=== PATIENT | male | born 1945 | race Caucasian/White ===

== ENCOUNTER → 2020-06-11 13:50 | Outpatient (CLI) | payer MEDICARE, SELFPAY ==
[2020-04-18 06:39] VITALS: BMI 26.5
--- NOTE | 2020-06-11 13:55 | CT_ITS ---
STUDY: LOW DOSE CT LUNG CANCER SCREENING REASON FOR EXAM: Male, 75 years old. Smoker X 40 YEARS. 1/2X1 PACK A DAY RADIATION DOSAGE (If Supplied By Facility): CTDIvol = ( 2.55 ) mGy, DLP = ( 86.78 ) mGycm TECHNIQUE: No contrast was administered. Low dose technique was utilized (average mAS-38 and kVp 120). 1.25 mm axial source images with a slice interval of 1.25-mm were reconstructed in lung windows. 2.5 mm axial source images with a slice interval of 2.5-mm were reconstructed in lung windows. 5.0 mm axial source images with a slice interval of 5.0-mm were reconstructed in soft tissue windows. Nodule measured using lung windows on PACS and/or independent workstation with automated measurement of minimum and maximum diameter. Nodule measurement reported as average diameter rounded to the nearest whole number. Growth is defined as an increase ins size of greater than 1.5 mm. COMPARISON: Comparison is made with prior examination dated 03/12/2015. Left-sided pacemaker is seen. NODULES: No suspicious nodules are seen. Emphysema: Hyperinflation. Mild degree of emphysematous changes more prominent in the upper lobes. Mild degree of increased linear markings at the right lung base suggestive of a scarring. This is essentially unchanged. Endobronchial lesion: Aorta: Atherosclerotic calcification. Coronary arteries: Coronary artery calcification. Heart: Unremarkable CT/Low Dose CT Lung Screening IMPRESSION: Lung-RADS category 2 - Continue annual screening with LDCT in 12 months. IMPORTANT NOTES FOR USE: ACR Lung-RADS Version 1.0 Assessment Categories Release Date: December 25, 2013 Category: Coded 0-4 bases on nodule(s) with highest degree of suspicion. Negative screen is defined as categories 1 and 2; a positive screen is defined as categories 3 and 4. Category 3 and 4A nodules that are unchanged on interval CT should be coded as category 2, and individuals returned to screening in 12 months. Category 4X: Category 3 or 4 nodules with additional imaging findings that increase the suspicion of lung cancer, such as spiculation, GGN that doubles in size in 1 year, enlarged lymph notes, etc. Category Modifiers: S (significant finding unrelated to lung cancer) and C (prior history of treated lung cancer) may be added to the 0-4 Lung-RADS Electronically Signed: Arias Dumont, at 13:19 EDT , Service support ,
== END ==
PROVIDERS: PCP Family Medicine; Referring Provider Internal Medicine Critical Care Medicine; Visit Provider Internal Medicine Critical Care Medicine
CPT/HCPCS: G0297

== ENCOUNTER → 2020-06-17 09:30 | Outpatient (CLI) | payer MEDICARE, SELFPAY ==
[2020-04-18 06:39] VITALS: BMI 26.5
--- NOTE | 2020-06-18 10:22 | PFT_ITS ---
INTRODUCTION: The patient is a 75-year-old male that presents for pulmonary function studies secondary to a diagnosis of COPD. Respiratory therapy reports good patient effort. Bronchodilators were used during testing. INTERPRETATION: Forced expiration spirometry demonstrates the presence of a moderate large airways obstructive ventilatory defect. There was no significant response to aerosolized bronchodilators. Spirograms are of good quality and do not plateau indicating slow emptying of the lungs. Body plethysmography was performed and reveals lung volumes to be within normal limits. Diffusing capacity by single breath CO is also within normal limits at 91% of predicted. IMPRESSION: Irreversible moderate large airways obstructive ventilatory defect with p reserved lung volumes and diffusing capacity.
== END ==
PROVIDERS: PCP Family Medicine; Referring Provider Internal Medicine Critical Care Medicine; Visit Provider Internal Medicine Critical Care Medicine
DX: J44.9 Chronic obstructive pulmonary disease, unspecified (principal); F17.210 Nicotine dependence, cigarettes, uncomplicated
CPT/HCPCS: 94060; 94726; 94729

== ENCOUNTER → 2020-07-11 12:20 | Outpatient (CLI) | payer MEDICARE, SELFPAY ==
[2020-06-25 08:42] VITALS: BMI 29.0
[2020-07-11 12:44] VITALS: PULSE 59; PULSE 60; PULSE 69; PULSE 73; PULSE 74; PULSE 76; PULSE 77; O2SAT 96; O2SAT 97; O2SAT 98
--- NOTE | 2020-07-11 17:46 | PCM.PSN.6M ---
PSN 6 Minute Walk Test - 6 Minute Walk Test 6 Minute Walk Test: 6 Minute Walk Test PSN:6-Minute Walk Test Start: 07/11/20 12:44 Freq: Status: Active Protocol: [id number] Document 07/11/20 12:44 RUT (Rec: 07/11/20 12:46 RUT [id number]) 6 Minute Walk Test Date Performed 07/11/20 Time Performed 12:30 Height 5 ft 7 in Weight: 81.193 kg Weight in Pounds 179.[address]: Alejandro Singh Assistive device used: None Pre-test Oxygen Delivery Method Room Air Pulse Ox (%) 96 Pulse Rate (60-100 beats/min) 60 Dyspnea Jennifer Scale (0-10) 0 Exertion Jennifer Scale (6-20) 6 1st minute Oxygen Delivery Method Room Air Pulse Ox (%) 98 Pulse Rate (60-100 beats/min) 69 2nd minute Oxygen Delivery Method Room Air Pulse Ox (%) 96 Pulse Rate (60-100 beats/min) 73 3rd minute Oxygen Delivery Method Room Air Pulse Ox (%) 97 Pulse Rate (60-100 beats/min) 73 4th minute Oxygen Delivery Method Room Air Pulse Ox (%) 96 Pulse Rate (60-100 beats/min) 74 5th minute Oxygen Delivery Method Room Air Pulse Ox (%) 96 Pulse Rate (60-100 beats/min) 76 6th minute Oxygen Delivery Method Room Air Pulse Ox (%) 97 Pulse Rate (60-100 beats/min) 77 Dyspnea Jennifer Scale (0-10) 1 Exertion Jennifer Scale (6-20) 13 Post-test Oxygen Delivery Method Room Air Pulse Ox (%) 96 Pulse Rate (60-100 beats/min) 59 L Full Laps Walked 15 Partial Lap, Number of Tiles Walked 42 Total Distance Walked (ft) 927 - Interpretation Interpretation: The patient was able to ambulate 927 feet over the course of 6 minutes on room air with no assistive devices or breaks. There was no significant desaturation or tachycardia noted during testing. These findings are consistent with a musculoskeletal limitation exercise tolerance. - Recommendations Recommendations: No supplemental oxygen is indicated at this time.
== END ==
PROVIDERS: PCP Family Medicine; Referring Provider Internal Medicine Critical Care Medicine; Visit Provider Internal Medicine Critical Care Medicine
DX: J44.9 Chronic obstructive pulmonary disease, unspecified (principal); F17.210 Nicotine dependence, cigarettes, uncomplicated
CPT/HCPCS: 94618

== ENCOUNTER → 2021-05-23 11:08 | Outpatient (CLI) | payer MEDICARE, SELFPAY ==
[2021-05-23 15:50] LABS: Creatinine, Serum 1.09 mg/dL (0.70-1.30); EST Glomerular Filtration Rate 70 mL/min (>60); Est Glom Filt Rate - Afr Amer 85 mL/min (>60)
== END ==
PROVIDERS: PCP Family Medicine; Referring Provider Otolaryngology; Visit Provider Otolaryngology
DX: H90.A21 Sensorineural hearing loss, unilateral, right ear, with restricted hearing on the contralateral side (principal)
CPT/HCPCS: 36415; 82565

== ENCOUNTER → 2021-05-27 15:48 | Outpatient (CLI) | payer MEDICARE, SELFPAY ==
--- NOTE | 2021-05-27 15:50 | CT_ITS ---
STUDY: CT BRAIN WITH AND WITHOUT CONTRAST REASON FOR EXAM: Male, 76 years old. ASYMMETRICAL SENSORINEURAL HEARING LOSS RADIATION DOSAGE (If Supplied By Facility): CTDIvol = ( 44.99 ) mGy, DLP = ( 1479.73 ) mGycm TECHNIQUE: Transaxial CT imaging of the brain was performed pre and post contrast administration. The examination was performed with intravenous administration of IV 50mL Isovue-370. Individualized dose optimization techniques were used for this CT. COMPARISON: None. FINDINGS: Normal soft tissue structures. Normal calvarium. Normal size ventricles and extra-axial spaces for the patient''s age. Normal white matter tracts of the cerebral hemispheres. Normal basal ganglia and thalami. Normal brainstem. Normal cerebellum. Demetrius cisterna magna. Crowded foramen magnum. There is no intracranial hemorrhage. There are no findings of an acute ischemic infarction. Near complete opacification of the right maxillary sinus. CT/Brain/Head W/WO Contrast IMPRESSION: Crowded foramen magnum. No acute abnormal finding. Consider CT of the temporal bones/IACs to further investigate hearing loss. Electronically Signed: Baldemar Taveras MD at 8:05 EDT Tel , Service support ,
== END ==
PROVIDERS: PCP Family Medicine; Referring Provider Otolaryngology; Visit Provider Otolaryngology
DX: H90.A21 Sensorineural hearing loss, unilateral, right ear, with restricted hearing on the contralateral side (principal)
CPT/HCPCS: 70470; Q9967

== ENCOUNTER → 2021-06-18 15:48 | Outpatient (CLI) | payer MEDICARE, SELFPAY ==
--- NOTE | 2021-06-18 15:51 | CT_ITS ---
STUDY: LOW DOSE CT LUNG CANCER SCREENING REASON FOR EXAM: Male, 76 years old. Smoker and gt; 40 pack years RADIATION DOSAGE (If Supplied By Facility): CTDIvol = ( 3.02 ) mGy, DLP = ( 106.08 ) mGycm TECHNIQUE: No contrast was administered. Low dose technique was utilized (average mAS-38 and kVp 120). 1.25 mm axial source images with a slice interval of 1.25-mm were reconstructed in lung windows. 2.5 mm axial source images with a slice interval of 2.5-mm were reconstructed in lung windows. 5.0 mm axial source images with a slice interval of 5.0-mm were reconstructed in soft tissue windows. Nodule measured using lung windows on PACS and/or independent workstation with automated measurement of minimum and maximum diameter. Nodule measurement reported as average diameter rounded to the nearest whole number. Growth is defined as an increase ins size of greater than 1.5 mm. COMPARISON: Comparison is made with prior study dated 06/11/2020. NODULES: No suspicious nodules are seen. Emphysema: Mild degree of emphysematous changes more prominent in the upper lobes. Minimal scarring at the right lung base. Endobronchial lesion: Unremarkable Aorta: Atherosclerotic calcification of the aortic arch. Coronary arteries: Coronary artery calcification. Heart: A left-sided dual-chamber pacemaker is seen. Pulmonary artery: Unremarkable Mediastinal nodes: Unremarkable Other chest and abdominal findings: CT/Low Dose CT Lung Screening IMPRESSION: Lung-RADS category 2 - Continue annual screening with LDCT in 12 months. IMPORTANT NOTES FOR USE: ACR Lung-RADS Version 1.1 Assessment Categories Release Date: 2018 Category: Coded 0-4 bases on nodule(s) with highest degree of suspicion. Negative screen is defined as categories 1 and 2; a positive screen is defined as categories 3 and 4. Category 3 and 4A nodules that are unchanged on interval CT should be coded as category 2, and individuals returned to screening in 12 months. Category 4X: Category 3 or 4 nodules with additional imaging findings that increase the suspicion of lung cancer, such as spiculation, GGN that doubles in size in 1 year, enlarged lymph notes, etc. Category Modifiers: S (significant finding unrelated to lung cancer) Electronically Signed: Arias Dumont MD at 12:07 EDT , Service support ,
== END ==
PROVIDERS: PCP Family Medicine; Referring Provider Nurse Practitioner Acute Care; Visit Provider Nurse Practitioner Acute Care
DX: F17.210 Nicotine dependence, cigarettes, uncomplicated (principal)
CPT/HCPCS: 71271

== ENCOUNTER 2021-07-04 07:55 | Day surgery (SDC) | payer MEDICARE, SELFPAY ==
--- NOTE | 2021-07-03 13:04 | EKG12_ITS ---
Test Reason : PREOP Blood Pressure : / mmHG Vent. Rate : 060 BPM Atrial Rate : 060 BPM P-R Int : 222 ms QRS Dur : 140 ms QT Int : 454 ms P-R-T Axes : 071 -89 009 degrees QTc Int : 454 ms AV dual-paced rhythm with prolonged AV conduction Biventricular pacemaker detected Abnormal ECG Confirmed by MIAN TOLBERT, IVAN ([id number]), editor school photograph MEREDITH QUINTERO ([id number]) on 07/07/2021 10:11:21 A M Referred By: Leo Arzate Confirmed By:JODY PAPPAS MD
[2021-07-03 14:44] LABS: Hematocrit 43.2 % (40-54); Hemoglobin 14.3 g/dL (13.0-16.5); Mean Corp Hgb Conc 33.1 g/dL (32-36); Mean Corpuscular Hgb 31.2 pg (27.0-32.0); Mean Corpuscular Volume 94.1 fL (80-94); Mean Platelet Vol. 10.2 fl (6.2-12.0); Platelet Count 167 K/mm3 (150-450); RBC Distribution Width CV 14.1 % (11.6-14.6); RBC Distribution Width SD 49.1 fl (35.1-43.9); Red Blood Count 4.59 M/mm3 (4.6-6.2); White Blood Count 8.8 K/mm3 (4.4-11.0)
[2021-07-03 14:49] LABS: International Normalized Ratio 3.3; Prothrombin Time (Protime)PT. 32.6 SECONDS (11.7-14.9)
[2021-07-03 15:04] LABS: Anion Gap 3 (5-15); BUN 19 mg/dL (7-18); BUN/Creat Ratio 16.2 RATIO (10-20); Calcium,Total 8.5 mg/dL (8.5-10.1); Chloride 108 mmol/L (98-107); Creatinine, Serum 1.17 mg/dL (0.70-1.30); EST Glomerular Filtration Rate 65 mL/min (>60); Est Glom Filt Rate - Afr Amer 78 mL/min (>60); Glucose 90 mg/dL (74-106); Potassium 4.5 mmol/L (3.5-5.1); Sodium Level 140 mmol/L (136-145)
[2021-07-04] VITALS (7 sets, daily range): BP systolic 109–134; BP diastolic 48–69; PULSE 60–74; RESP 16; TEMP 36.2–36.7; O2SAT 95–98; BMI 30.4
--- NOTE | 2021-07-04 | ETH_PTH ---
PATIENT: REDD TIDWELL [place] [facility] [place][id number] AGE/SX: 76/M ROOM: RE07/04/[address]: Dr. Leo Arzate MD : 1945 BED: DIS: 07/04/2021 SPEC #: [id number] RECD: 07/04/21 13:32 STATUS: CHARLEE REShruthi #: [id number] DELONTE: 07/04/21 00:[address]: Leo Arzate DEPT: SURGICAL PATHOLOGY RECD BY: Mir Salinas ENTERED: 07/04/21 13:33 SP TYPE: ETH TISS OTHR DR: Dr. Dylan Bishop MD Tissues: Ethmoid sinus, NOS Procedures: Decalcification bone/plaque Surgery Specimen Level IV HEADER OPERATION: Endoscopic sinus maxillary antrostomy PRE-OP DIAGNOSIS: Chronic maxillary ethmoid sinusitis TISSUE SUBMITTED: Right maxillary sinus contents MICROSCOPIC DIAGNOSIS Right maxillary sinus contents: Fragments of respiratory mucosa with moderate acute and chronic inflammation and bone. BRITTANY:glenn 07/08/2021 MICROSCOPIC DESCRIPTION Slides are reviewed. GROSS DESCRIPTION Received in fixative is one container labeled with the patient's name and designated right maxillary sinus contents. The specimen consists of multiple irregular fragments of de la rosa-pink soft tissue mixed with fragments of bone that in aggregate measure 5 x 3 x 0.2 cm. The specimen is totally submitted in two cassettes after decalcification. / BRITTANY:glenn 07/04/21 TC:2 CPT: 55568, 08957
[2021-07-04] MEDS: Lactated Ringers 1,000 ML 15 ML IV (08:25)
[2021-07-04] MEDS: Oxymetazoline 0.05% 1 SPRAY SPRAY.BTL 15 SPRAY (09:37)
[2021-07-04] MEDS: Lidocaine 1% /Epi 1:100 (50ml) 50 ML VIAL (09:37)
[2021-07-04] MEDS: Lidocaine 4% 50 ML Bottle (09:37)
--- NOTE | 2021-07-04 10:03 | PCM.OPRPT ---
Problems Associated Problem List Diagnoses (1) Chronic right maxillary sinusitis: (2) Chronic ethmoidal sinusitis: Report of Operation Date of Procedure: 07/04/21 Pre-Operative Diagnosis: Chronic right maxillary and ethmoid sinusitis Post-Operative Diagnosis: Same Surgery/Procedure Performed:: Right endoscopic maxillary antrostomy with tissue removal, right partial ethmoidectomy Description of Surgical Findings:: Gen is a 76-year-old male who is noted to have incidental findings on CT scan of the brain a complete opacification of the right maxillary sinus. He had noted right-sided facial discomfort and pressure and this was felt to be attributable to this finding surgical treatment offered for the chronic appearing disease and evaluation for possible neoplasia or other cause. The risks, alternatives, potential complications, and benefits were discussed at length and any questions answered to the patient and/or caregiver's satisfaction. Witnessed informed consent was obtained in the office, and the patient and/or caregiver was agreeable to proceed. Procedure went as follows: The patient was identified in the preoperative holding and brought to the operating room, was placed under general anesthesia and intubated. When appropriate anesthesia was obtained, the navigational head gear was placed and confirmed to be operational in accordance with the mender knit goods's directions. Pledgets soaked in a 50-50 mixture of oxymetazoline and 4% topical lidocaine were placed to decongest the nasal mucosa. These were then removed and beginning on the right side using a 0? endoscope the nasal cavity examined. The insertion of the middle turbinate and uncinate process was then injected with 1% lidocaine with 100,000 epinephrine for a total of 2 mL. On the right side, the maxillary sinus ostia which was then probed with a double ball seeker. The uncinate process was then outfractured with a J curette and transected with a backbiting forceps. This was then removed with the microdebrider creating a wide maxillary antrostomy. The maxillary sinus noted to be filled with friable bullous polypoid material which was then removed with serial grasping forceps and curved suctions. The ethmoid bulla was noted to be low lying and obstructing the maxillary sinus ostia and this was then entered and a partial ethmoidectomy was then carried out working posteriorly and superiorly to the maxillary antrostomy. This alleviated the area obstruction and widen the ostiomeatal complex to allow for ongoing patency. Pledgets soaked in oxymetazoline were then placed for hemostasis and Floseal hemostatic agent was then applied. An NG tube was then placed to decompress the stomach and the patient returned to anesthesia, revived and extubated having tolerated the procedure well. Surgeon: seven Type of Anesthesia: General Anesthesiologist: Curtis Mcrae Specimen's removed: right maxillary sinus contents Drains: none Estimated Blood Loss (mL): 50 mL Fluids Replaced: 800 mL Grafts/Implants Used: none Complications none Admit VTE Documentation VTE Present on Admission: No VTE Mechan Device Prophylaxis: SCD's VTE Pharm Prophylaxis ordered?: No Reason prophylaxis not ordered:: Treatment Not Indicated
--- NOTE | 2021-07-04 10:22 | PCM.DC ---
Discharge Instructions Diet Discharge Diet: No restrictions Activity Discharge Activity: Return to Normal Activity Weight Bearing Status: Weight bearing as tolerated Dressing / Incision Call your doctor if your incision/area has: Sudden Increased Bleeding Call your doctor if you observe: Fever of 101 or Higher and Uncontrolled pain Follow Up Care Please Follow Up With: Leo Arzate MD When: 2 weeks Test Results: Test results from this visit will be discussed in further detail at your follow-up appointment, if applicable. Discharge Plan Admission Primary Reason for Your Visit: Chronic maxillary sinusitits, ehtmoid sinusitis Attending Provider: Leo Arzate Primary Care Provider: Dylan Bishop Discharge Orders/Prescriptions Prescriptions: New acetaminophen 500 mg Tablet 500 mg PO Q4H PRN PRN (Reason: Pain Score 1-5/10) Qty: 0 RF: 0 Continued Anoro Ellipta 62.5-25 mcg/actuation blister with device 1 inh inhalation Q24H Qty: 1 RF: 3 lisinopril 5 MG tablet 5 mg PO DAILY Qty: 30 RF: 0 albuterol sulfate 1 INHALER inhaler 1 - 2 puff INHALATION Q4H PRN PRN (Reason: SOB &/OR WHEEZING) Qty: 1 RF: 0 escitalopram oxalate 10 MG tablet 10 mg PO DAILY Qty: 30 RF: 0 carvedilol 12.5 MG tablet 12.5 mg PO BID Qty: 60 RF: 0 warfarin 5 mg Tablet 5 mg PO SUMOWETHFRSA RF: 0 warfarin 5 mg Tablet 2.5 mg PO TU RF: 0 Referrals / Follow Up: Dylan Bishop MD [Primary Care Provider] - Disposition Disposition (needs filled in before D/C Order can be placed): Home, Self Care
--- NOTE | 2021-07-04 12:15 | SUR.PHASEII ---
PT'S AT BEDSIDE. SHE HAS ASSISTED PT. WITH SNACK. SHE WILL CALL TRANSPORT TO TAKE PT. BACK TO [facility].
[2021-07-04 13:21] LABS: INR Fingerstick 2.8; Prothrombin Time Fingerstick 31.5 SEC (11.9-14.4)
== END 2021-07-04 12:05 | disposition home or self-care (01) ==
LOC: SDC 07:58 → AC 07:59
PROVIDERS: Anesthesiology; PCP Family Medicine; Referring Provider Otolaryngology; Visit Provider Otolaryngology
PROC: (CPT 31254; principal; 2021-07-04 08:45)
DX: J32.0 Chronic maxillary sinusitis (principal); J32.2 Chronic ethmoidal sinusitis; I10 Essential (primary) hypertension; M19.90 Unspecified osteoarthritis, unspecified site; I25.10 Atherosclerotic heart disease of native coronary artery without angina pectoris; J44.9 Chronic obstructive pulmonary disease, unspecified; F32.A Depression, unspecified; Z95.810 Presence of automatic (implantable) cardiac defibrillator; Z79.899 Other long term (current) drug therapy; F17.210 Nicotine dependence, cigarettes, uncomplicated
CPT/HCPCS: 00160; 31254; 31267; 36415; 36416; 80048; 85027; 85610; 87426; 88305; 88311; 93005; C9803; J7120; J2405

== ENCOUNTER 2022-07-24 14:54 | Outpatient (CLI) | payer BC, SELFPAY ==
--- NOTE | 2022-07-24 14:55 | CT_ITS ---
EXAM: CT CHEST, LUNG CANCER SCREENING WITHOUT INTRAVENOUS CONTRAST CLINICAL INDICATION: Tobacco Dependency TECHNIQUE: Helically acquired images were obtained of the chest without intravenous contrast using low dose (LDCT) lung cancer screening protocol. This CT exam was performed using one or more of the following dose reduction techniques: automated exposure control, adjustment of the mA and/or kV according to patient size, and/or use of iterative reconstruction technique. This report was created using [employer] report generation technology. COMPARISON: CT Lung Cancer Screening dated 06/18/2021 FINDINGS: LUNGS AND PLEURAL SPACES: No evidence of a lung mass or pulmonary nodule. No pleural effusion or thickening. No pneumothorax. HEART: Heart is normal size. Dense coronary artery calcification is noted. No pericardial effusion. MEDIASTINUM: Normal. No mediastinal or hilar adenopathy. Esophagus is unremarkable. No hiatal hernia. THYROID: Normal. No thyroid lesions. BONES/JOINTS: Normal. No suspicious lytic or blastic abnormality. VASCULATURE: Normal. Thoracic aorta is non-dilated. LYMPH NODES: Normal. No enlarged lymph nodes. TUBES, LINES AND DEVICES: Automatic implantable cardioverter defibrillator (AICD) in place. CT/Low Dose CT Lung Screening IMPRESSION: 1. No evidence of lung mass or pulmonary nodule. 2. ACR Lung CT Screening Reporting T Data System (Lung-RADS) score: 1 - Recommend continued annual screening with low-dose CT (LDCT) in 12 months. Electronically Signed: Jake Pearce MD at 15:48 EST ,
== END 2022-07-24 23:59 | disposition home or self-care (01) ==
LOC: CT 14:54
PROVIDERS: PCP Family Medicine; Visit Provider Internal Medicine Critical Care Medicine
DX: F17.210 Nicotine dependence, cigarettes, uncomplicated (principal); Z12.2 Encounter for screening for malignant neoplasm of respiratory organs; I25.10 Atherosclerotic heart disease of native coronary artery without angina pectoris
CPT/HCPCS: 71271

== ENCOUNTER → 2024-11-30 | Outpatient (CLI) | payer MEDICARE, SELFPAY ==
--- NOTE | 2024-11-30 13:07 | CR.HP_ITS ---
CR - History & Physical General Arrival date:: 11/30/24 Arrival time:: 13:08 Date of Referral:: 11/08/24 Date of CR Evaluation:: 11/30/24 Referring Physician: Dr. Cherelle Christian Primary Diagnosis: S/P CABG History of Present Cardiac Event Onset Date Coronary Artery Bypass Graft:: Yes Vessel: CABALLERO to LAD. PERLA to SVG to OM onset 09/29/2024 Medications Ambulatory Orders ?Medication ?Instructions ?Recorded albuterol sulfate 90 mcg/actuation 1 - 2 puff inhalati on Q4H PRN PRN 03/13/15 aerosol inhaler SOB &/OR WHEEZING ##1 carvedilol 12.5 mg tablet 12.5 mg PO BID #60 tabs 02/27 01/11 escitalopram oxalate 10 mg tablet 10 mg PO DAILY #30 t abs 03/13/15 lisinopril 5 mg tablet 5 mg PO DAILY #30 tabs 03/13 umeclidinium 62.5 mcg-vilanterol 1 inh inhalation Q24H #1 device 04/18/20 25 mcg/actuation powdr for inhalation (Anoro Ellipta) warfarin 5 mg tablet 2.5 mg PO TU 07/03/21 warfarin 5 mg tablet 5 mg PO SUMOWETHFRSA 1 acetaminophen 500 mg tablet 500 mg PO Q4H PRN PRN Pain Score 07/04/21 1-5/ #0 tabs aspirin 81 mg capsule 81 mg PO DAILY 04/28/22 Allergies Allergies Penicillins (PCN) Allergy (Verified 04/28/22 07:54) Hives Sleep Disorder Evaluation Hx of Sleep Apnea: No Do you snore loudly (louder than talking or can be heard through closed doors)?: No Do you often feel tired/ fatigued/ sleepy during daytime?: No Has anyone observed you stop breathing during sleep?: No History of Hypertension (for STOP score): Yes STOP Results: Negative Advanced Directives Advanced Directives Do you have a Healthcare Power of Auto [employer]?: No Living Will: No Advance Directives Information Provided: No Advance Directives on File: No DNR Order?:: No Past Medical History Covid-19 Screening Physicial Symptoms Other Clinical Concerns Exposure Risk Pertinent Comorbidities 65 years or older:: Yes Has a chronic lung disease or moderate to severe asthma:: Yes Has a serious heart condition:: Yes Past Medical Illness Past Medical History (Updated 08/20/21 @ 10:[address] Alejandro Singh, DO) Wears hearing aid Z97.4 RIGHT Wears glasses Z97.3 Wears dentures Z97.2 DOESNT WEAR Depression F32.A ON MED Anxiety F41.9 ON MED Arthritis M19.90 Back pain M54.9 OCC Injury of head and neck S09.90XA, S19.9XXA FALL AT WORK AND HIT HEAD YRS AGO History of Meniere's disease Z86.69 Former smoker Z87.891 Asthma J45.909 MILD History of pain when walking Z87.898 OCC History of edema Z87.898 LOWER LEGS PRN History of echocardiogram Z92.89 UNSURE History of stress test Z92.89 1-2 YRS AGO Cardiology follow-up encounter Z09 DR FABIAN AT [facility]/LAST VISIT 08/2020 Hypertension I10 CONTROLLED WITH MEDS History of heart attack I25.2 25-30 YRS AGO History of pacemaker Z95.0 COPD (chronic obstructive pulmonary disease) J44.9 INHALERS Chest pain R07.9 CAD (coronary artery disease) I25.10 SOB (shortness of breath) R06.02 Past Surgical History Past Surgical History (Updated 07/03/21 @ 08:29 by Antonella Villa) Hx of varicose vein ligation and stripping Z98.890 BILAT History of cardiac catheterization Z98.890 OVER 5 YRS AGO Hx of colonoscopy Z98.890 History of carpal tunnel surgery of right wrist Z98.890 History of carpal tunnel surgery of left wrist Z98.890 History of implantable cardiac defibrillator (ICD) Z95.810 Hx of shoulder surgery Z98.890 RIGHT SHOULDER RECONSTRUCTION FROM INJURY Family History Summary Family History Other No pertinent family history Social History Smoking History Smoking Status: Former smoker Years Smokin Packs Smoked per Day: 3 (Pt stopped smoking this August) Alcohol Use Alcohol Usage: No Substance Abuse Hx Substance Use: No Occupation Occupation (List type of work in comments):: Retired Social Environment Status Marital Status: Current Living Arrangements Living Environment:: Spouse Children How many children do you have?: 3 Do any of your children live nearby?: Yes Safety Do you feel safe in your surroundings?: Yes Assistance Do you need any assistance at home?: no Review of Systems Review of Systems Hints Review of Present Symptoms: Reports Shortness of Breath with Exertion, PVD, Dizziness/Lightheadedness, Fatigue and Appetite - Special Diet; Denies Shortness of Breath at Rest, Operative Discomfort, Angina, Wound Healing, Heart Arrhythmia/Irregularities, Appetite - Normal, Sleep - Normal or Sexual Changes Pain Is Patient Pain Free?: Yes Risk Factor Assessment Chief Complaint Chief Complaint: S/P CABG Vital Signs Pulse Ox: 100 Blood Pressure: 90/40 Pulse Pulse Rate: 76 Pulse Rhythm: Regular Obesity Height: 5 ft 7 in Weight:: 154 lb Weight in Pounds: 154.0 lbs Body Mass Index (BMI): 24.1 Nutritional Referral for Obesity: No Risk Stratification Risk Guidelines: Moderate Risk: Risk Factor for Diabetes, Risk Factor for Obesity and Risk Factor for Sedentary Lifestyle and Highest Risk: Risk Factor for Smoking, Risk Factor for Dyslipidemia, Risk Factor for Hypertension and Risk Factor for Depression For Smoking Smoking Risk Guidelines For Dyslipidemia Dyslipidemia Risk Guidelines For Diabetes Mellitus Diabetes Risk Guidelines For Obesity/Overweight Obesity/Overweight Risk Guidelines For Hypertension Hypertension Risk Guidelines For Sedentary Lifestyle Sedentary Lifestyle Risk Guidelines For Depression Depression Risk Guidelines Family History Family History Other No pertinent family history Motivation Motivation to Participate On a scale of 1 to 10, how prepared are you to commit to attending program?: 10 What do you see as barriers to successfully being able to complete the program?: nothing What do you see as the benefits of succesfully completing the program? In other words, what do you hope to get out of participating in the program?: stronger, better attitude Are there issues you are dealing with that will interfere with completing the program?: no Do you have a spouse or signficant other, family or friends who will help support you to complete the program?: yes
--- NOTE | 2024-11-30 13:15 | PCM.CR.ITP ---
Diagnosis General Information Admitting Diagnosis: S/P CABG Personal Learning Style:: Audio/Visual Barriers to Learning: No Barriers Stage of change r/t lifestyle modifications:: Contemplation Gave educational material for:: Treating Heart Disease, How The Heart Works, What it means to have Heart Disease, How Coronary Artery Disease is Diagnosed, Heart Procedures, What Heart Medications Do, Risk Factors & Modifications, Living an Active Life, Nutrition, Emotions & Heart Disease, Stress Management & Relaxation and Sleep Disorders & Heart Disease Education/Goals Cardiac Rehabilitation Goals Personal Goals: Initial Assessment: Quit smoking (participate in smoking cessation, Improve management of stress and emotions, Improve energy level, Get back to work, or to resume activities faster, Improve knowledge of cardiac disease, Improve muscle strength and endurance, Control risk factors (learn risk factor modification) and Other goal: Scale for measuring improvement of personal goals Diagnosis & Disease Process Outcomes/Goals: Pt IDs own risk factors & lifestyle modifications by Session 10, Verbalizes symptoms of angina & response by session 3., Pt independently manages and Other Additional Outcomes/Goals: Plan/Interventions: Assist Pt to ID & engage in lifestyle modification to reduce CVD risk, Instruct on individual risk factors, Review symptoms of angina & emergency actions, Review secondary diagnosis & identify educational needs. and Other see comment 30 day Reassessments:: Not Met 30 day Reassessments:: Not Met 30 day Reassessments:: Not Met 30 day Reassessments:: Not Met Final Reassessments:: Not Met Safety Referral to Physical Therapy: No Referral to [facility] Case Management: No Fall Risk Assessed:: Yes Assistive Devices:: None Exercise - Initial Assessment Visit Date of Eval: 11/30/24 (initial eval ) Mets: Pre-: >3 METS for 30 minutes by discharge, >5 METS for 30 minutes by discharge, >7 METS for 30 minutes by discharge and Unable to meet goal due to: (see comment below) Physician Prescribed Exercise Modalities: David MATHIAS-[id number], SciFit Stepper, SciFit Pro-II Ergometer and NextPrinciplesFit Lateral Fruit Express Agent Frequency: 3x/week for 12 weeks [36 sessions] Intensity: 60-80% of age predicted maximum heart rate reserve Duration: 30 - 45 minutes Current METSs:: 3 Target Heart Rate:: 86-107 Resting Blood Pressure: 90/40 EKG Type: AV dual paced w/ prolonged AV conduction Outcomes & Goals Goals:: Verbalizes understanding of THR, RPE & goal METS by session 6, Documents in home exercise log/reports 30 min aerobic 5 day/wk by DC, Demonstrates accurate pulse taking by DC and Other additional outcome/goals: see below Intervention & Plan Exercise Program Goals: Instruct on personal THR & RPE, Instruct on MET level & personal MET goal, Show patient to take own pulse /validate performance until accurate, Instruct on home exercise and Other additional plan/int Physical Activity Home Exercise Physical Activity - Home Exercise: Safe Exercise, Warm-up, Self-monitoring, Cool-Down, Home Exercise > 30 min Daily and Sitting Time <3 hours/daily Outcomes & Goals Outcomes/Goals: Demonstrates correct Warm-up/exercise Cool-Down (S3) if = 2.5 METs, Verbalizes symptoms of exercise intolerance by Session 3 (S3), Demonstrate safe equipment use (S3) & follows exercise prescrition (6) and Other: See below Intervention & Plan Plan/Intervention: Instruct warm-up & cool-down if exercising at > 2 METs, Instruct on symptoms of exercise intolerance & actions to take, Instruct & monitor on saf, Assess intial functional capacity & safety risk and Other See below Nutrition - Initial Assessment Program Goals Nutrition Program Goals Patient has diagnosis of Hyperlipidemia (ICD E78)?: Yes Visit Date of Eval: 11/30/24 (initial eval ) Cholesterol/Lipids (Other Core Measures) Determine presence & major risk factors that modify LDL goal: Cigarette smoking, Hypertension or hypertensive medication, Low HDL cholesterol <40 mg/dL*, Family history of premature CHD in Male < 55 years: female <65 yearsFa and Age men > 45 years; women >/= 55 years Outcomes/Goals: Pt IDs own risk factors & lifestyle modifications by Session 10, Verbalizes symptoms of angina & response by session 3., Pt independently manages and Other Additional Outcomes/Goals: Intervention/Plan: Advocate for lipid panel cholesterol medication if applicable, Instruct on personal lipid levels & lipid goals/NCEP guidelines, Instruct on cholesterol and Other additional plan/int Diabetes (Other Core Measures) Diabetes Type: Not Applicable Weight Mgt (Other Care) Height: 5 ft 7 in Weight:: 154 lb BMI: 24.1 Diagnosis Overweight/Obesity BMI> 30% ICD-10 E66: No Diagnosis High BMI/Morbid Obesity BMI> 35% ICD-10 Z68: No Outcomes/Goals: Pt sets, maintains & shows weight loss goal & trend during rehab and Other additional outcomes/goals Intervention/Plan: Instruct on ideal BMI & set weight loss goal w/patient, Assist pt to ID & incorporate diet changes for weight loss by S9, Refer to Structured Weight Loss program as appropriate, Encourage goal of using 250-300dcal per session for weight loss and Other additional plan/interventions Healthy Eating Habits Will attend diet classes:: Yes Outcomes/Goals:: Consume diet rich in vegs,fruits,whole grain/high fiber,fish,lean meat, Limit sat/trans fats,cholesterol & added salts & sugars and Other additional outcome/goals: Intervention/Plan:: Assess current eating habits and Other Additional plan/interventions Education Gave educational materials for:: Signs & symptoms of hypoglycemia, Signs & symptoms of hyperglycemia, Relate diabetes to coronary artery disease and Healthy eating Core - Initial Assessment Visit Date of Eval: 11/30/24 (initial eval ) Medication Compliance Preventative Medication(s):: Statin/lipid and Eliquis Doesn?t believe in the benefits of treatment?: No Believes medications are unnecessary or harmful?: No Has a concern about medication side effects?: No Expresses concern over the cost of medications?: No Outcomes/Goals: Verbalizes medications,desired effect & common side effects @ DC, Pt self-reports following medication regimen, Keeps card in wallet w/medications listed by DC and Other additional outcome/goals: Interventions/plans: Instruct on medication effects & side effects, Review medication list w/patient every two weeks, Instruct importance of taking meds as ordered & assist problem solving and Other additional Tobacco Use Tobacco Use: Non-smoker How long ago did you quit using tobacco products?: Less than 6 months ago (Pt stopped smoking in August) Years Smokin Do you use smokeless tobacco?: No Outcomes/Goals: Smoking cessation achieved or maintained by discharge, Identify aids/strategies for achieving smoking cessation by session 6 and Other additional outcome/goals Interventions/plan: Instruct on effects of smoking & provide smoking cessation resource, Assist pt to set quit date & provide encouragement, Assist pt to develop strategies to achieve/maintain quit date, Assist pt w/nicotine replacement & medication for cessation success and Other additional plan/interventions Hypertension Hypertension Diagnosis:: Hypertension ICD-10 I10 Resting Blood Pressure:: 90/40 [place] [employer] Hypertension Guidelines Outcomes/Goals: Able to verbalize/achieve optimal blood pressure <130/80, Incorporates diet changes & exercise for blood pressure control by DC and Other additional outcomes/goals Interventions/plan: Instruct on optimal blood pressure, hypertension & medications, Instruct on effects of sodium, alcohol, stress, exercise &hypertension and Other additional plan/interventions Tobacco Cessation Referral Smoking Cessation Referral:: No Individual Education/Counseling:: No Education Schedule Given:: Yes Psychosocial - Initial Assess VIsit Date of Eval: 11/30/24 (initial eval ) History of previous Mental disease:: Yes History of Emotional Disorders: Depression (Pt states he has suffered from some mild depression/anger since his surgery.) Self-reported stressors: Recent Illness Target Goals Target Goals Psychosocial Test Tool Used:: Visual [employer] QOL Cardiac and PHQ-9 Questionnaire phq-9 Severity See PHQ-9 Score: 16 Referral to Behavioral Health PS - Interventions: Yes: Attend Stress Management Classes Outcomes/Goals: See list Psychosocial Outcomes/Goals:: ID's personal stressors & 2 strategies to manage stress by discharge and Other Additional outcome/goals: Intervention/Plan: See List Interventions/Plan:: Assess stressors,coping strategies & signs of derpression on admission, Instruct/assist pt to develop coping & personal stress Mgt strategies, Refer to Behavioral Health if appropriate, Refer to Physician if appropriate, Instruct patient to recognize signs & symptoms of depression, Instruct patient to recog and Other additional plan/intervention Patient Health Questionnaire PHQ-9 Screening Initial Assessment: 1. Little interest or pleasure in doing things: Nearly every day 2. Feeling down, depressed, or hopeless: Nearly every day 3. Trouble falling or staying asleep, or sleeping too much: Nearly every day 4. Feeling tired or having little energy: Nearly every day 5. Poor appetite or overeating: Not at all 6. Feeling bad about yourself -- or that you are a failure or have let yourself or your family down: More than half the days 7. Trouble concentrating on things, such as reading the newspaper or watching television: More than half the days 8. Moving or speaking so slowly that other people could have noticed. Or the opposite - being so fidgety or restless that you have been moving around a lot more than usual: Not at all 9. Thoughts that you would be better off , or of hurting yourself in some way: Not at all How difficult have these problems made it for you to do your work, take care of things at home, or get along with other people?: Somewhat difficult Total Score: 16 CH[place]STIANA-Q SV Test Statements CAD is a disease of the arteries in the heart: False Examples of risk factors for heart disease: True Angina is chest pain or discomfort: True The benefits of resistance training include: True Eating more meat and dairy products: I Don't Know Anti-platelet medications such as aspirin are important: True The only effective way to manage stress: False An exercise warm-up slowly increases heart rate: True Prepared, processed foods usually have high sodium: True Depression is common after a heart attack: True The statin medications lower cholesterol: I Don't Know To control blood pressure, lower the amount of sodium: True If someone gets chest discomfort during walking: False Transfats are partially hydrogenated vegetable oils: I Don't Know Sleep apnea that is not treated increases the risk: False To control cholesterol, one should become a vegetarian: False Someone knows if he/she is exercising at the right level: True Diabetes cannot be prevented with exercise & health eating: True Stress is a large risk for heart attack: True A diet that can help lower blood pressure is rich in: True Total Score Total Correct Responses: 16 Self-Efficacy 6-Item Scale Initial Assessment: We would like to know how confident you are in doing certain activities. Please select your confidence level for: Fatigue Select Number: 8 Physical Discomfort or Pain Select Number: 9 Emotional Distress Select Number: 9 Other Symptoms or Health Problems Select Number: 7 Different Tasks and Activities Select Number: 8 Medication Select Number: 9 Total Score:: 8 Nutrition Survey Nutrition Survey Instructions Scoring Instructions Nutrition Survey Initial: Have you lost >10 lbs over the past 2 months without trying?: No Are you following a special diet at home for diabetes, low fat, or low salt?: No Are you interested in meeting with a dietitian for help understanding your diet?: No Do you eat less than 3 meals a day?: Yes Do you eat fatty meats (rush, sausage, ribs, etc), fried foods, desserts, large amounts of salad dressings, margarine, butter, or cheese most days?: No Do you have food allergies? [Enter types in comment field]: No Do you eat in restaurants more than 3 times a week?: No Do you season food with salt, seasoning salt, or garlic salt?: No Do you used canned, boxed, frozen meals, or soups, seasoning packets?: Yes Total Score:: 2 Exercise - 30-day Assessment Physician Prescribed Exercise Modalities: Schwinn Airdyne AD-7, SciFit Stepper, SciFit Pro-II Ergometer and SciFit Lateral Fruit Express Agent Exercise - 60-day Assessment Physician Prescribed Exercise Modalities: Schwinn Airdyne AD-7, SciFit Stepper, SciFit Pro-II Ergometer and SciFit Lateral [place] Exercise - 90-day Assessment Physician Prescribed Exercise Modalities: Schwinn Airdyne AD-7, SciFit Stepper, SciFit Pro-II Ergometer and SciFit Lateral Fruit Express Agent Exercise - Final/Discharge Physician Prescribed Exercise Modalities: Schwinn Airdyne AD-7, SciFit Stepper, SciFit Pro-II Ergometer and SciFit Lateral [place] Frequency: 3x/week for 12 weeks [36 sessions] Intensity: 60-80% of age predicted maximum heart rate reserve Current METSs:: 3 Target Heart Rate:: 86-107 Nutrition - 30-Day Assessment Weight Mgt (Other Care) Height: 5 ft 7 in Weight:: 154 lb BMI: 24.1 Nutrition - 60-Day Assessment Weight Mgt (Other Care) Height: 5 ft 7 in Weight:: 154 lb BMI: 24.1 Core - 30-Day Assessment Tobacco Use Years Sm[place] Core - Final Assessment Hypertension Resting Blood Pressure:: 90/40 [place] [employer] Hypertension Guidelines Core - 60-Day Assessment Hypertension Resting Blood Pressure:: 90/40 [place] [employer] Hypertension Guidelines Psychosocial - 30-Day Assess Target Goals Target Goals Referral to Behavioral Health PS - Interventions: Yes: Attend Stress Management Classes Psychosocial - 60-Day Assess Target Goals Target Goals Referral to Behavioral Health PS - Interventions: Yes: Attend Stress Management Classes Psychosocial - 90-Day Assess Target Goals Target Goals Referral to Behavioral Health PS - Interventions: Yes: Attend Stress Management Classes Psychosocial - Final Assessmen Target Goals Target Goals Psychosocial Test phq-9 Severity See PHQ-9 Score: 16 Referral to Behavioral Health PS - Interventions: Yes: Attend Stress Management Classes Nutrition - 90-Day Assessment Weight Mgt (Other Care) Height: 5 ft 7 in Weight:: 154 lb BMI: 24.1 Nutrition - Final Assessment Program Goals Patient has diagnosis of Hyperlipidemia (ICD E78)?: Yes Weight Mgt (Other Care) Height: 5 ft 7 in Weight:: 154 lb BMI: 24.1
[2024-11-30 13:26] VITALS: BMI 24.1
[2024-11-30 13:31] VITALS: BP 90/40; PULSE 76; O2SAT 100
[2024-11-30 13:57] VITALS: BP 90/40; BMI 24.1
[2024-11-30 14:03] VITALS: BP 90/40
== END | disposition home or self-care (01) ==
LOC: CR 12:59
PROVIDERS: PCP Family Medicine
DX: Z00.00 Encounter for general adult medical examination without abnormal findings (principal)

== ENCOUNTER 2024-12-06 15:09 | Outpatient (RCR) | payer MEDICARE, SELFPAY ==
[2024-11-30 13:57] VITALS: BMI 24.1
== END 2024-12-27 23:59 ==
LOC: CR 15:09
PROVIDERS: PCP Family Medicine
DX: J44.9 Chronic obstructive pulmonary disease, unspecified (principal); Z95.1 Presence of aortocoronary bypass graft
CPT/HCPCS: 93798

== ENCOUNTER 2025-01-29 09:27 | Outpatient (RCR) | payer MEDICARE, SELFPAY ==
[2025-01-26 10:30] VITALS: BMI 27.8
[2025-01-28 00:41] VITALS: BP 84/42; BP 92/64
--- NOTE | 2025-02-21 07:01 | CR.ITP_ITS ---
Exercise - Initial Assessment Physician Prescribed Exercise Modalities: Treadmill, Rower, Schwinn Airdyne AD-7, SciFit Stepper, SciFit Pro- II Ergometer and SciFit Lateral [employer] Project Manager Nutrition - Initial Assessment Weight Mgt (Other Care) Height: 5 ft 7 in Weight:: 178 lb BMI: 27.8 Psychosocial - Initial Assess Target Goals Target Goals Referral to Behavioral Health PS - Interventions: Yes: Attend Stress Management Classes Nutrition Survey Nutrition Survey Instructions Scoring Instructions Exercise - 30-day Assessment Physician Prescribed Exercise Modalities: Treadmill, Rower, Schwinn Airdyne AD-7, SciFit Stepper, SciFit Pro- II Ergometer and SciFit Lateral [place] Exercise - 60-day Assessment Physician Prescribed Exercise Modalities: Treadmill, Rower, Schwinn Airdyne AD-7, SciFit Stepper, SciFit Pro- II Ergometer and SciFit Lateral [employer] Project Manager Exercise - 90-day Assessment Visit Date of Eval: 02/21/25 Session #:: 1 (Pt has only been able to attend 1 session and is currently on med hold.) Physician Prescribed Exercise Modalities: Treadmill, Rower, Schwinn Airdyne AD-7, SciFit Stepper, SciFit Pro- II Ergometer and SciFit Lateral [place] Frequency: 3x/week for 12 weeks [36 sessions] Intensity: 60-80% of age predicted maximum heart rate reserve Duration: 30 - 45 minutes Current METSs:: 3.1 Target Heart Rate:: 86-107 Current RPE:: 13 Maximum Excercise HR:: 89 Resting Blood Pressure: 84/42 Maximum Exercise Blood Pressure: 92/64 EKG Type: Paced w/ occas PVC's. Outcomes & Goals Goals:: Verbalizes understanding of THR, RPE & goal METS by session 6, Documents in home exercise log/reports 30 min aerobic 5 day/wk by DC, Demonstrates accurate pulse taking by DC and Other additional outcome/goals: see below Intervention & Plan Exercise Program Goals: Instruct on personal THR & RPE, Instruct on MET level & personal MET goal, Show patient to take own pulse /validate performance until accurate, Instruct on home exercise and Other additional plan/int 30-day Reassessments 30 day Reassessments:: Not Met Physical Activity Home Exercise Physical Activity - Home Exercise: Safe Exercise, Warm-up, Self-monitoring, Cool-Down, Home Exercise > 30 min Daily and Sitting Time <3 hours/daily Outcomes & Goals Outcomes/Goals: Demonstrates correct Warm-up/exercise Cool-Down (S3) if = 2.5 METs, Verbalizes symptoms of exercise intolerance by Session 3 (S3), Demonstrate safe equipment use (S3) & follows exercise prescrition (6) and Other: See below Intervention & Plan Plan/Intervention: Instruct warm-up & cool-down if exercising at > 2 METs, Instruct on symptoms of exercise intolerance & actions to take, Instruct & monitor on saf, Assess intial functional capacity & safety risk and Other See below 30-day Reassessments 30 day Reassessments:: Not Met Exercise - Final/Discharge Physician Prescribed Exercise Modalities: Treadmill, Rower, Schwinn Airdyne AD-7, SciFit Stepper, SciFit Pro- II Ergometer and SciFit Lateral [place] Nutrition - 30-Day Assessment Weight Mgt (Other Care) Height: 5 ft 7 in Weight:: 178 lb BMI: 27.8 Nutrition - 60-Day Assessment Weight Mgt (Other Care) Height: 5 ft 7 in Weight:: 178 lb BMI: 27.8 Core - 90 Day Assessment Visit Date of Eval: 02/21/25 Session #:: 1 Medication Compliance Preventative Medication(s):: Statin/lipid, Beta sherice and Eliquis Doesn’t believe in the benefits of treatment?: No Believes medications are unnecessary or harmful?: No Has a concern about medication side effects?: No Expresses concern over the cost of medications?: No Outcomes/Goals: Verbalizes medications,desired effect & common side effects @ DC, Pt self-reports following medication regimen, Keeps card in wallet w/medications listed by DC and Other additional outcome/goals: Interventions/plans: Instruct on medication effects & side effects, Review medication list w/patient every two weeks, Instruct importance of taking meds as ordered & assist problem solving and Other additional 30-day Reassessments:: Not Met Tobacco Use Tobacco Use: Non-smoker How long ago did you quit using tobacco products?: Less than 6 months ago (Pt stopped in August) Outcomes/Goals: Smoking cessation achieved or maintained by discharge, Identify aids/strategies for achieving smoking cessation by session 6 and Other additional outcome/goals Interventions/plan: Instruct on effects of smoking & provide smoking cessation resource, Assist pt to set quit date & provide encouragement, Assist pt to develop strategies to achieve/maintain quit date, Assist pt w/nicotine replacement & medication for cessation success and Other additional plan/interventions 30-day Reassessments:: Not Met Hypertension Hypertension Diagnosis:: Hypertension ICD-10 I10 Resting Blood Pressure:: 84/42 [place] [employer] Hypertension Guidelines Peak Exercise Blood Pressure:: 92/64 Outcomes/Goals: Able to verbalize/achieve optimal blood pressure <130/80, Incorporates diet changes & exercise for blood pressure control by DC and Other additional outcomes/goals Interventions/plan: Instruct on optimal blood pressure, hypertension & medications, Instruct on effects of sodium, alcohol, stress, exercise &hypertension and Other additional plan/interventions 30 day Reassessments:: Not Met Tobacco Cessation Referral Smoking Cessation Referral:: No Individual Education/Counseling:: No Education Schedule Given:: Yes Psychosocial - 30-Day Assess Target Goals Target Goals Referral to Behavioral Health PS - Interventions: Yes: Attend Stress Management Classes Psychosocial - 60-Day Assess Target Goals Target Goals Referral to Behavioral Health PS - Interventions: Yes: Attend Stress Management Classes Psychosocial - 90-Day Assess VIsit Date of Eval: 02/21/25 Session #:: 1 History of Emotional Disorders: Depression (mild depressin and anger due to recent illness) Self-reported stressors Other/Comments:: Recent Illness Target Goals Target Goals Psychosocial Test Tool Used:: PHQ-9 Questionnaire phq-9 Severity See PHQ-9 Score: 16 Referral to Behavioral Health PS - Interventions: Yes: Attend Stress Management Classes Outcomes/Goals: See list Psychosocial Outcomes/Goals:: ID's personal stressors & 2 strategies to manage stress by discharge and Other Additional outcome/goals: Intervention/Plan: See List Interventions/Plan:: Assess stressors,coping strategies & signs of derpression on admission, Instruct/assist pt to develop coping & personal stress Mgt strateg ies, Refer to Behavioral Health if appropriate, Refer to Physician if appropriate, Instruct patient to recognize signs & symptoms of depression, Instruct patient to recog and Other additional plan/intervention 30-day Reassessments: 30 day Reassessments:: Not Met Psychosocial - Final Assessmen Target Goals Target Goals Referral to Behavioral Health PS - Interventions: Yes: Attend Stress Management Classes Nutrition - 90-Day Assessment Program Goals Nutrition Program Goals Patient has diagnosis of Hyperlipidemia (ICD E78)?: Yes Visit Date of Eval: 02/21/25 Session #:: 1 Cholesterol/Lipids (Other Core Measures) Determine presence & major risk factors that modify LDL goal: Cigarette smoking, Hypertension or hypertensive medication, Low HDL cholesterol <40 mg/dL*, Family history of premature CHD in Male < 55 years: female <65 yearsFa and Age men > 45 years; women >/= 55 years Outcomes/Goals: Pt IDs own risk factors & lifestyle modifications by Session 10, Verbalizes symptoms of angina & response by session 3., Pt independently manages and Other Additional Outcomes/Goals: Intervention/Plan: Advocate for lipid panel cholesterol medication if gretel licable, Instruct on personal lipid levels & lipid goals/NCEP guidelines, Instruct on cholesterol and Other additional plan/int 30-day Reassessments:: Not Met Diabetes (Other Core Measures) Diabetes Type: Not Applicable Weight Mgt (Other Care) Height: 5 ft 7 in Weight:: 178 lb BMI: 27.8 Diagnosis Overweight/Obesity BMI> 30% ICD-10 E66: No Diagnosis High BMI/Morbid Obesity BMI> 35% ICD-10 Z68: No Outcomes/Goals: Pt sets, maintains & shows weight loss goal & trend during rehab and Other additional outcomes/goals Intervention/Plan: Instruct on ideal BMI & set weight loss goal w/patient, Assist pt to ID & incorporate diet changes for weight loss by S9, Refer to Structured Weight Loss program as appropriate, Encourage goal of using 250- 300dcal per session for weight loss and Other additional plan/interventions 30 day Reassessments:: Not Met Healthy Eating Habits Will attend diet classes:: Yes Outcomes/Goals:: Consume diet rich in vegs,fruits,whole grain/high fiber,fish,lean meat, Limit sat/trans fats,cholesterol & added salts & sugars and Other additional outcome/goals: Intervention/Plan:: Assess current eating habits and Other Additional plan/interventions 30-day Reassessments:: Not Met Education Gave educational materials for:: Signs & symptoms of hypoglycemia, Signs & symptoms of hyperglycemia, Relate diabetes to coronary artery disease and Healthy eating Nutrition - Final Assessment Weight Mgt (Other Care) Height: 5 ft 7 in Weight:: 178 lb BMI: 27.8
[2025-02-21 07:08] VITALS: BP 84/42; BMI 27.8
== END 2025-02-26 23:59 ==
LOC: CR 09:27
PROVIDERS: PCP Family Medicine
DX: J44.9 Chronic obstructive pulmonary disease, unspecified (principal); Z95.1 Presence of aortocoronary bypass graft
CPT/HCPCS: 93798